=== PATIENT | male | born 1990 | race Caucasian/White ===

== ENCOUNTER 2017-09-19 05:34 | Emergency (ER) | payer OTHER ==
[~2017-09-19] VITALS: Ht 180.3 cm; Wt 90.0 kg
[2017-09-19 05:40] VITALS: BP 151/98; PULSE 100; RESP 12; TEMP 97.6; O2SAT 99
--- NOTE | 2017-09-19 05:55 | PD ---
HPI Chief Complaint: Suicide Ideation/Attempt Time Seen by Provider: 05:52 Travel History International Travel<30 days: No Contact w/Intl Traveler<30days: No Traveled to known affect area: No History of Present Illness HPI 27-year-old male presents under Lemons act [place] by the [employer] Department. Patient reports that his mother 1 year ago. He reports that since then he has been using heroin on a semi-regular basis. He reports that he has become homeless and today he was feeling helpless and he called the Police Department. He reports that he has been feeling suicidal, specifically he had a plan to jump in front of traffic. Symptoms are moderate with no aggravating or relieving factors. He denies any homicidal ideation, auditory or visual hallucination. He has no other complaints at this time. [facility] Past Medical History Hx Anticoagulant Therapy: No Cardiovascular Problems: No Cerebrovascular Accident: No Diabetes: No Respiratory: No ?: Not Past Surgical History Hysterectomy: No Social History Alcohol Use: Yes Tobacco Use: Yes Substance Use: Yes Allergies-Medications (Allergen,Severity, Reaction): Coded Allergies: No Known Allergies (Unverified , 09/19/17) Reported Meds & Prescriptions Reported Meds & Active Scripts Active No Active Prescriptions or Reported Medications Review of Systems Except as stated in HPI: all other systems reviewed are Neg Physical Exam Narrative GENERAL: Well-developed well-nourished male in no acute distress SKIN: Warm and dry. Track taveras noted on the arms. HEAD: Atraumatic. Normocephalic. EYES: Pupils equal and round. No scleral icterus. No injection or drainage. ENT: No nasal bleeding or discharge. Mucous membranes pink and moist. NECK: Trachea midline. No JVD. CARDIOVASCULAR: Regular rate and rhythm. No murmur appreciated. RESPIRATORY: No accessory muscle use. Clear to auscultation. Breath sounds equal bilaterally. GASTROINTESTINAL: Abdomen soft, non-tender, nondistended. Hepatic and splenic margins not palpable. MUSCULOSKELETAL: No obvious deformities. No clubbing. No cyanosis. No edema. NEUROLOGICAL: Awake and alert. No obvious cranial nerve deficits. Motor grossly within normal limits. Normal speech. PSYCHIATRIC: Appropriate mood and affect; insight and judgment normal. Data Data Last Documented VS Vital Signs Date Time Temp Pulse Resp B/P (MAP) Pulse Ox O2 Delivery O2 Flow Rate FiO2 09/19/17 05:40 97.6 100 12 151/98 (115) 99 Orders Orders Complete Blood Count With Diff (09/19/17 05:44) Comprehensive Metabolic Panel (09/19/17 05:44) Psych Screen (09/19/17 05:44) Diet Regular Basic (09/19/17 Breakfast) Drug Screen, Random Urine (09/19/17 05:44) Alcohol (Ethanol) (09/19/17 05:44) Labs Laboratory Tests Test 09/19/17 05:50 White Blood Count 9.9 TH/MM3 Red Blood Count 5.40 MIL/MM3 Hemoglobin 16.6 GM/DL Hematocrit 48.5 % Mean Corpuscular Volume 89.9 FL Mean Corpuscular Hemoglobin 30.7 PG Mean Corpuscular Hemoglobin Concent 34.2 % Red Cell Distribution Width 14.0 % Platelet Count 258 TH/MM3 Mean Platelet Volume 7.4 FL Neutrophils (%) (Auto) 62.9 % Lymphocytes (%) (Auto) 25.8 % Monocytes (%) (Auto) 9.6 % Eosinophils (%) (Auto) 1.1 % Basophils (%) (Auto) 0.6 % Neutrophils # (Auto) 6.2 TH/MM3 Lymphocytes # (Auto) 2.6 TH/MM3 Monocytes # (Auto) 1.0 TH/MM3 Eosinophils # (Auto) 0.1 TH/MM3 Basophils # (Auto) 0.1 TH/MM3 CBC Comment DIFF FINAL Differential Comment Blood Urea Nitrogen 15 MG/DL Creatinine 1.12 MG/DL Random Glucose 99 MG/DL Total Protein 8.3 GM/DL Albumin 3.9 GM/DL Calcium Level 8.9 MG/DL Alkaline Phosphatase 121 U/L Aspartate Amino Transf (AST/SGOT) 53 U/L Alanine Aminotransferase (ALT/SGPT) 63 U/L Total Bilirubin 0.5 MG/DL Sodium Level 137 MEQ/L Potassium Level 3.9 MEQ/L Chloride Level 101 MEQ/L Carbon Dioxide Level 24.5 MEQ/L Anion Gap 12 MEQ/L Estimat Glomerular Filtration Rate 78 ML/MIN Ethyl Alcohol Level LESS THAN 3 MG/DL MDM Medical Decision Making Medical Screen Exam Complete: Yes Emergency Medical Condition: Yes Medical Record Reviewed: Yes Differential Diagnosis Adjustment reaction, substance-induced mood disorder, acute psychosis, major depressive disorder, bipolar disorder Narrative Course 27-year-old male presents under Lemons act for psychiatric evaluation. Mental health screening discussed with the patient. Psychiatric screen ordered. Medically cleared for psychiatric disposition. Diagnosis Primary Impression: Medical clearance for psychiatric admission Scripts No Active Prescriptions or Reported Meds Mitch Hamilton Sep 19, 2017 05:55
[2017-09-19 06:12] LABS: AUTOMATED NEUTROPHIL # 6.2 TH/MM3 (1.8-7.7); BASOPHIL # 0.1 TH/MM3 (0-0.2); BASOPHIL % 0.6 % (0.0-2.0); EOSINOPHIL # 0.1 TH/MM3 (0-0.4); EOSINOPHIL % 1.1 % (0.0-4.0); HEMATOCRIT 48.5 % (39.0-51.0); HEMOGLOBIN 16.6 GM/DL (13.0-17.0); LYMPH % 25.8 % (9.0-44.0); LYMPHOCYTE # 2.6 TH/MM3 (1.0-4.8); MEAN CELL VOLUME 89.9 FL (80.0-100.0); MEAN CORPUSCULAR HEMOGLOBIN 30.7 PG (27.0-34.0); MEAN CORPUSCULAR HGB CONC 34.2 % (32.0-36.0); MEAN PLATELET VOLUME 7.4 FL (7.0-11.0); MONO % 9.6 % (0.0-8.0); NEUT % 62.9 % (16.0-70.0); PLATELET COUNT 258 TH/MM3 (150-450); WHITE BLOOD COUNT 9.9 TH/MM3 (4.0-11.0)
[2017-09-19 06:39] LABS: ALKALINE PHOSPHATASE 121 U/L (45-117); ALT (GPT) 63 U/L (12-78); TOTAL BILIRUBIN ADULT 0.5 MG/DL (0.2-1.0); TOTAL PROTEIN 8.3 GM/DL (6.4-8.2)
[2017-09-19 06:42] LABS: ALBUMIN 3.9 GM/DL (3.4-5.0); AST (GOT) 53 U/L (15-37); BICARBONATE 24.5 MEQ/L (21.0-32.0); BLOOD UREA NITROGEN 15 MG/DL (7-18); CALCIUM 8.9 MG/DL (8.5-10.1); CHLORIDE 101 MEQ/L (98-107); CREATININE 1.12 MG/DL (0.60-1.30); GLOMERULAR FILTRATION RATE 78 ML/MIN (>89); GLUCOSE,RANDOM 99 MG/DL (74-106); SODIUM (NA) 137 MEQ/L (136-145)
[2017-09-19] MEDS ORDERED: IBUPROFEN 600 MG TAB PO ONE (10:00)
[2017-09-19] MEDS ORDERED: diphenhydrAMINE HCL 25 MG CAP PO ONE (10:30)
[2017-09-19] MEDS ORDERED: cloNIDine HCL 0.2 MG TAB PO ONE (10:30)
--- NOTE | 2017-09-19 10:32 | PD ---
Physical Exam Date Seen by Provider: Sep 19, 2017 Time Seen by Provider: 10:30 Narrative Patient presented to emerge from under Lemons act, please see previous documentation for full H&P. Data Data Last Documented VS Vital Signs Date Time Temp Pulse Resp B/P (MAP) Pulse Ox O2 Delivery O2 Flow Rate FiO2 09/19/17 05:40 97.6 100 12 151/98 (115) 99 Orders Orders Complete Blood Count With Diff (09/19/17 05:44) Comprehensive Metabolic Panel (09/19/17 05:44) Psych Screen (09/19/17 05:44) Diet Regular Basic (09/19/17 Breakfast) Drug Screen, Random Urine (09/19/17 05:44) Alcohol (Ethanol) (09/19/17 05:44) Clonidine (Catapres) (09/19/17 10:30) Diphenhydramine (Benadryl) (09/19/17 10:30) Ibuprofen (Motrin) (09/19/17 10:00) Ed Discharge Order (09/19/17 10:30) Labs Laboratory Tests Test 09/19/17 05:50 White Blood Count 9.9 TH/MM3 Red Blood Count 5.40 MIL/MM3 Hemoglobin 16.6 GM/DL Hematocrit 48.5 % Mean Corpuscular Volume 89.9 FL Mean Corpuscular Hemoglobin 30.7 PG Mean Corpuscular Hemoglobin Concent 34.2 % Red Cell Distribution Width 14.0 % Platelet Count 258 TH/MM3 Mean Platelet Volume 7.4 FL Neutrophils (%) (Auto) 62.9 % Lymphocytes (%) (Auto) 25.8 % Monocytes (%) (Auto) 9.6 % Eosinophils (%) (Auto) 1.1 % Basophils (%) (Auto) 0.6 % Neutrophils # (Auto) 6.2 TH/MM3 Lymphocytes # (Auto) 2.6 TH/MM3 Monocytes # (Auto) 1.0 TH/MM3 Eosinophils # (Auto) 0.1 TH/MM3 Basophils # (Auto) 0.1 TH/MM3 CBC Comment DIFF FINAL Differential Comment Blood Urea Nitrogen 15 MG/DL Creatinine 1.12 MG/DL Random Glucose 99 MG/DL Total Protein 8.3 GM/DL Albumin 3.9 GM/DL Calcium Level 8.9 MG/DL Alkaline Phosphatase 121 U/L Aspartate Amino Transf (AST/SGOT) 53 U/L Alanine Aminotransferase (ALT/SGPT) 63 U/L Total Bilirubin 0.5 MG/DL Sodium Level 137 MEQ/L Potassium Level 3.9 MEQ/L Chloride Level 101 MEQ/L Carbon Dioxide Level 24.5 MEQ/L Anion Gap 12 MEQ/L Estimat Glomerular Filtration Rate 78 ML/MIN Ethyl Alcohol Level LESS THAN 3 MG/DL MDM Medical Record Reviewed: Yes Supervised Visit with GILBERT: No Narrative Course Patient is a 19-year-old male that presented to emergency department under Lemons act for psychiatric evaluation. He was seen and evaluated in the emergency department, medically cleared. He was then evaluated by psychiatrist. Lemons act was lifted, patient was diagnosed with opiate use disorder. Patient was referred to [facility] for [facility]hab. Diagnosis Primary Impression: Opiate misuse Referrals: [facility] day Additional Instruction: Follow-up with [facility] Avoid illicit drug use Return to emergency department for any new or worsening symptoms Med/Other Pt SpecificInfo: No Change to Meds Scripts No Active Prescriptions or Reported Meds Disposition: 01 DISCHARGE HOME Condition: Stable Lisa Davila Sep 19, 2017 10:32
[2017-09-19 10:45] VITALS: BP 154/84
--- NOTE | 2017-09-19 14:28 | PD.PN.STU ---
Subjective Remarks 27 year old male is being seen today after an involuntarily Lemons Act after patient called the Police Department because he was feeling suicidal at the time and planned to jump in front of traffic. On exam today he states that he is feeling much better and has a chief complaint of stomach pain. He has an 8 month history of heroin use which he says was started after the of his parents 1 year ago to cope. He felt hopeless because his heroin use caused him to lose his housing, illiciting his call to the police. He verbalizes wishing to stop using heroin and wants to seek help. The patient denies suicidal ideations, denies homicidal ideation and denies audiovisual hallucination and delusions. He is cooperative and calm. No prior psychiatric hospitalizations, no past suicidal attempts and no psychiatric medical history. Patient is not taking any medications. Patient is positive for alcohol use, heroin use and is a current smoker for 6 years. He is currently homeless, lives in [facility] as well as unemployed. Objective Vitals Appearance: appears his stated age, well-groomed, wearing hospital pajamas Behavior: appropriate eye contact, able to answer questions completely on command Attitude: cooperative and focused Conscious: Alert and Oriented x3 Speech: normal volume and normal rate, fluent with good articulation Mood: euthymic, patient feels much better than before Affect: appropriate to situation and consistent with mood, congruent Thought Process: Linear, Goal-oriented, coherent Thought Content: No suicidal ideations, no homicidal ideations, no hallucinations, no delusions Insight/Judgement: Aware of problem and why he is here today, Wants to seek help in stopping heroin usage and has a plan for his future Result Diagram: 09/19/17 0550 09/19/17 0550 A/P Assessment and Plan Assessment: Adjustment Reaction, Substance-Induced Mood Disorder, Major Depressive Disorder , Bipolar Disorder Plan: Lemons Act will be lifted. Patient diagnosed with opiate use disorder and will be referred to [facility] for rehab. Jourdan Degroot M3 Sep 19, 2017 14:28
--- NOTE | 2017-09-19 16:29 | PD.PSY.CON ---
Provisional Diagnosis Admission Date [place]. Substance-induced mood disorder, heroine and alcohol use disorder [place] II. Unspecified personality disorder History of Present Illness Service Psychiatry Consult Requested By ER Reason for Consult Suicidal ideation Primary Care Physician The patient was seen this morning at 8:30 AM The patient is a 27 year old man, homeless, unemployed, single, with psychiatric history of heroine use disorder, bipolar disorder, no previous psychiatric hospitalizations, previous suicide attempts, first time at [facility] is being seen today after an involuntarily Lemons Act after patient called the Police Department because he was feeling suicidal at the time and planned to jump in front of traffic. On exam today he states that he is feeling much better and has a chief complaint of stomach pain. He has an 8 month history of heroin use which he says was started after the of his parents 1 year ago to cope. He felt hopeless because his heroin use caused him to lose his housing, illiciting his call to the police. He verbalizes wishing to stop using heroin and wants to seek help. The patient denies suicidal ideations, denies homicidal ideation and denies audiovisual hallucination and delusions. He is cooperative and calm. No prior psychiatric hospitalizations, no past suicidal attempts and no psychiatric medical history. Patient is not taking any medications. Patient is positive for alcohol use, heroin use and is a current smoker for 6 years. The patient does report symptoms of anxiety, jitteriness, nausea, muscle pain due to withdrawal. Review of Systems Constitutional: DENIES: Diaphoretic episodes, Fatigue, Fever, Weight gain, Weight loss, Chills, Dizziness, Change in appetite, Night Sweats Endocrine: DENIES: Heat/cold intolerance, Polydipsia, Polyuria, Polyphagia Eyes: DENIES: Blurred vision, Diplopia, Eye inflammation, Eye pain, Vision loss , Photosensitivity, Double Vision Ears, nose, mouth, throat: DENIES: Tinnitus, Hearing loss, Vertigo, Nasal discharge, Oral lesions, Throat pain, Hoarseness, Ear Pain, Running Nose, Epistaxis, Sinus Pain, Toothache, Odynophagia Respiratory: DENIES: Apneas, Cough, Snoring, Wheezing, Hemoptysis, Sputum production, Shortness of breath Cardiovascular: DENIES: Chest pain, Palpitations, Syncope, Dyspnea on Exertion , PND, Lower Extremity Edema, Orthopnea, Claudication Gastrointestinal: DENIES: Abdominal pain, Black stools, Bloody stools, Constipation, Diarrhea, Nausea, Vomiting, Difficulty Swallowing, Anorexia Genitourinary: DENIES: Sexual dysfunction, Urinary frequency, Urinary incontinence, Urgency, Hematuria, Dysuria, Nocturia, Penile Discharge, Testicular Pain, Testicular Swelling Musculoskeletal: COMPLAINS OF: Joint pain, DENIES: Muscle aches, Stiffness, Joint Swelling, Back pain, Neck pain Integumentary: DENIES: Abnormal pigmentation, Nail changes, Pruritus, Rash Hematologic/lymphatic: DENIES: Bruising, Lymphadenopathy Immunologic/allergic: DENIES: Eczema, Urticaria Neurologic: DENIES: Abnormal gait, Headache, Localized weakness, Paresthesias, Seizures, Speech Problems, Tremor, Poor Balance Psychiatric: COMPLAINS OF: Anxiety, DENIES: Confusion, Mood changes, Depression , Hallucinations, Agitation, Suicidal Ideation, Homicidal Ideation, Delusions Past Family Social History Coded Allergies: No Known Allergies (Unverified , 09/19/17) No Active Prescriptions or Reported Meds Family Psych History No family psychiatric history Social History Patient was born in the [facility], he is homeless, single, unemployed, highest level of education is high school Patient's Strengths (min. 2) Verbal communication Physical Exam Patient has bilateral tremors, irritability, psychomotor agitation Vital Signs Vital Signs Date Time Temp Pulse Resp B/P (MAP) Pulse Ox O2 Delivery O2 Flow Rate FiO2 09/19/17 10:45 97 18 154/84 (107) 97 09/19/17 05:40 97.6 I/O 09/19/17 09/19/17 09/20/17 08:00 16:00 00:00 Intake Total 240 ml Balance 240 ml Lab Results Test 09/19/17 05:50 White Blood Count 9.9 TH/MM3 Red Blood Count 5.40 MIL/MM3 Hemoglobin 16.6 GM/DL Hematocrit 48.5 % Mean Corpuscular Volume 89.9 FL Mean Corpuscular Hemoglobin 30.7 PG Mean Corpuscular Hemoglobin Concent 34.2 % Red Cell Distribution Width 14.0 % Platelet Count 258 TH/MM3 Mean Platelet Volume 7.4 FL Neutrophils (%) (Auto) 62.9 % Lymphocytes (%) (Auto) 25.8 % Monocytes (%) (Auto) 9.6 % Eosinophils (%) (Auto) 1.1 % Basophils (%) (Auto) 0.6 % Neutrophils # (Auto) 6.2 TH/MM3 Lymphocytes # (Auto) 2.6 TH/MM3 Monocytes # (Auto) 1.0 TH/MM3 Eosinophils # (Auto) 0.1 TH/MM3 Basophils # (Auto) 0.1 TH/MM3 CBC Comment DIFF FINAL Differential Comment Blood Urea Nitrogen 15 MG/DL Creatinine 1.12 MG/DL Random Glucose 99 MG/DL Total Protein 8.3 GM/DL Albumin 3.9 GM/DL Calcium Level 8.9 MG/DL Alkaline Phosphatase 121 U/L Aspartate Amino Transf (AST/SGOT) 53 U/L Alanine Aminotransferase (ALT/SGPT) 63 U/L Total Bilirubin 0.5 MG/DL Sodium Level 137 MEQ/L Potassium Level 3.9 MEQ/L Chloride Level 101 MEQ/L Carbon Dioxide Level 24.5 MEQ/L Anion Gap 12 MEQ/L Estimat Glomerular Filtration Rate 78 ML/MIN Ethyl Alcohol Level LESS THAN 3 MG/DL Mental Status Examination Appearance: Appropriate Consciousness: Alert Orientation: x4 Motor Activity: Normal gait Speech: Unremarkable Language: Adequate Fund of Knowledge: Adequate Attention and Concentration: Adequate Memory: Unremarkable Mood: Appropriate Affect: Irritable Thought Process & Associations: Intact Thought Content: Appropriate Hallucination Type: None Delusion Type: None Suicidal Ideation: No Suicidal Plan: No Suicidal Intention: No Homicidal Ideation: No Homicidal Plan: No Homicidal Intention: No Insight: Fair Judgment: Impulsive Assessment & Plan Problem List: (1) Substance induced mood disorder ICD Codes: F19.94 - Other psychoactive substance use, unspecified with psychoactive substance-induced mood disorder Assessment & Plan: At the moment of the psychiatric evaluation the patient presents with anxiety, irritability, a little bit agitated, reporting body pain , nausea in the context of alcohol and opiates withdrawal. The patient denies symptomatology of depression, such as anhedonia, hopelessness, helplessness, suicidal and homicidal ideation, visual and auditory hallucinations. Patient is logical, coherent and relevant. Goal-directed. The patient reports that he is committed to be transferred to a detox/rehab program.. He does not meet criteria for involuntary psychiatric admission at this moment. I will order Ativan 2 mg and clonidine 0.2 mg stat for symptoms of withdrawal. Brief supportive psychotherapy provided. Lemons act will be lifted Assessment & Plan Estimated LOS: Natalio Mcguire MD Sep 19, 2017 16:29
== END 2017-09-19 11:05 | disposition home or self-care (01) ==
LOC: NEPD 05:34
DX: F11.23 Opioid dependence with withdrawal (principal); F10.239 Alcohol dependence with withdrawal, unspecified; Y90.0 Blood alcohol level of less than 20 mg/100 ml; R45.851 Suicidal ideations; F41.9 Anxiety disorder, unspecified; F60.9 Personality disorder, unspecified; Z59.0 Homelessness
CPT/HCPCS: 80053; 80307; 85025; 99284